=== PATIENT | female | born 1995 | race Caucasian/White ===

== ENCOUNTER → 2019-03-16 17:35 | Outpatient (CLI) | payer OTHER, SELFPAY ==
[2019-03-17 15:35] LABS: Chlamydia Trachomatis by PCR Negative (Negative); Neisserai gonorrhoeae by PCR Negative (Negative); Probe Check PASS; Sample Adequacy Control PASS; Specimen Processing Control PASS
[2019-03-22 13:43] LABS: HPV Reflexed? NOT INDICATED
== END ==
PROVIDERS: Advanced Practice Midwife; Visit Provider Obstetrics & Gynecology
DX: Z12.4 Encounter for screening for malignant neoplasm of cervix (principal); Z11.3 Encounter for screening for infections with a predominantly sexual mode of transmission
CPT/HCPCS: 87491; 87591; 88175; G0145

== ENCOUNTER → 2019-03-30 15:49 | Outpatient (CLI) | payer OTHER, SELFPAY ==
[2019-03-30 17:24] LABS: Absolute Lymphocyte Count 1.55 X10^3/uL (0.83-4.51); Absolute Neutrophil Count 6.9 X10^3/uL (2.0-7.7); Basophil# 0.02 X10^3/uL; Basophil% 0.2 % (0-1); Eosinophil# 0.04 X10^3/uL; Eosinophils% 0.4 % (0-5); Hematocrit 39.4 % (37-47); Lymphocyte # 1.55 X10^3/ul (4.0); Lymphocyte % 17.3 % (19-41); Mean Corpuscular Hgb 29.3 pg (27.0-32.0); Mean Corpuscular Volume 88.7 fL (81-99); Mean Platelet Vol. 11.8 fl (6.2-12.0); Monocyte# 0.44 X10^3/uL; Monocyte% 4.9 % (0-10); NRBC Flagged by Analyzer 0 % (0-5); Neutrophil # 6.85 X10^3/uL (2.7-7.7); Neutrophil % 76.8 % (47-70); Platelet Count 168 K/mm3 (150-450); RBC Distribution Width CV 12.7 % (11.6-14.6); RBC Distribution Width SD 41.1 fl (35.1-43.9); Red Blood Count 4.44 M/mm3 (4.2-5.4); White Blood Count 8.9 K/mm3 (4.4-11.0)
[2019-03-30 17:25] LABS: Color, Urine Yellow (Yellow); Glucose, Dipstick Normal (Normal); Ketone-Dipstick 15 mg/dl (Negative); Leukocyte Esterase-Dipstick 100 /ul (Negative); Nitrite-Dipstick Negative (Negative); Occult Blood-Urine 10 /ul (Negative); Protein-Dipstick 15 mg/dl (Negative); Urine Bilirubin Dipstick Negative (Negative); Urine Clarity Cloudy (Clear); Urine Urobilinogen 1 mg/dl (Normal); Urine pH 6.5 (5.0 - 8.0)
[2019-03-30 17:39] LABS: Amphetamine Urine VISTA NEGATIVE (<1000 ng/mL); Barbiturate Urine VISTA NEGATIVE (< 200 ng/mL); Benzodiazepine Urine VISTA NEGATIVE (< 200 ng/mL); Cocaine Urine VISTA NEGATIVE (< 300 ng/mL); Ecstacy Urine VISTA NEGATIVE (< 500 ng/mL); Methadone Urine VISTA NEGATIVE (< 300 ng/mL); PCP Urine VISTA NEGATIVE (< 25 ng/mL); THC Urine VISTA NEGATIVE (< 50 ng/mL); Vista UDS pH Range 7
[2019-03-30 17:49] LABS: Glucose Challenge Gest 1H 50g 98 mg/dL (70-140); Thyroid Stim Hormone (TSH) 2.04 uIU/mL (0.358-3.74)
[2019-03-31 10:55] LABS: HIV - WCH Non-Reactive (Nonreactive); Hepatitis B Surface Antigen Non-Reactive (Nonreactive); Hepatitis C Antibody Non-Reactive (Nonreactive); Rubella IgG 35.4 IU/mL
[2019-04-01 01:55] LABS: Prenatal RPR NONREACTIVE (NONREACTIVE)
== END ==
LOC: WOBLAB 15:53
PROVIDERS: Visit Provider Advanced Practice Midwife
DX: Z34.82 Encounter for supervision of other normal pregnancy, second trimester (principal)
CPT/HCPCS: 36415; 80307; 81002; 82950; 84443; 85025; 86703; 86762; 86803; 87340

== ENCOUNTER → 2019-06-08 10:49 | Outpatient (CLI) | payer OTHER, SELFPAY ==
[2019-06-08 11:20] LABS: Hematocrit 35.9 % (37-47); Mean Corp Hgb Conc 33.4 g/dL (32-36); Mean Corpuscular Hgb 29.8 pg (27.0-32.0); Mean Corpuscular Volume 89.1 fL (81-99); Mean Platelet Vol. 11.1 fl (6.2-12.0); Platelet Count 161 K/mm3 (150-450); RBC Distribution Width CV 12.5 % (11.6-14.6); RBC Distribution Width SD 40.9 fl (35.1-43.9); Red Blood Count 4.03 M/mm3 (4.2-5.4); White Blood Count 8.3 K/mm3 (4.4-11.0)
[2019-06-08 11:27] LABS: Glucose Challenge Gest 1H 50g 137 mg/dL (70-140)
== END ==
PROVIDERS: Visit Provider Obstetrics & Gynecology
DX: Z34.83 Encounter for supervision of other normal pregnancy, third trimester (principal)
CPT/HCPCS: 36415; 82950; 85027

== ENCOUNTER → 2019-07-28 15:41 | Outpatient (CLI) | payer OTHER, SELFPAY | PROVIDERS: Referring Provider Advanced Practice Midwife; Visit Provider Advanced Practice Midwife | DX: Z36.85 Encounter for antenatal screening for Streptococcus B (principal) | CPT/HCPCS: 87081 ==

== ENCOUNTER 2019-08-17 19:05 | Inpatient (IN) | payer OTHER, SELFPAY ==
[2019-08-17 16:24] LABS: Hematocrit 36.6 % (37-47); Mean Corp Hgb Conc 32.8 g/dL (32-36); Mean Corpuscular Hgb 28.5 pg (27.0-32.0); Mean Corpuscular Volume 86.9 fL (81-99); Mean Platelet Vol. 11.6 fl (6.2-12.0); Platelet Count 185 K/mm3 (150-450); RBC Distribution Width CV 12.9 % (11.6-14.6); RBC Distribution Width SD 40.6 fl (35.1-43.9); Red Blood Count 4.21 M/mm3 (4.2-5.4); White Blood Count 8.2 K/mm3 (4.4-11.0)
[2019-08-17 16:37] LABS: AST(SGOT) 14 U/L (15-37); Alanine Aminotransfer ALT/SGPT 18 U/L (13-56); Creatinine, Serum 0.77 mg/dL (0.55-1.02); EST Glomerular Filtration Rate 97 mL/min (>60); Est Glom Filt Rate - Afr Amer 117 mL/min (>60); Uric Acid 4.8 mg/dL (2.6-6.0)
[2019-08-17 17:13] LABS: International Normalized Ratio 1.1; Prothrombin Time (Protime)PT. 13.6 SECONDS (11.7-14.9)
[2019-08-17 17:14] LABS: Partial Thromboplast Time 26.5 Seconds (24.1-36.2)
[2019-08-17 19:27] VITALS: BMI 49.4
[2019-08-17 20:02] VITALS: BP 157/98; PULSE 88; TEMP 97.8; O2SAT 98
[2019-08-17] MEDS: Lactated Ringers 1,000 ML 50 ML IV (20:05)
[2019-08-17 20:23] LABS: Absolute Lymphocyte Count 1.77 X10^3/uL (0.83-4.51); Absolute Neutrophil Count 7.8 X10^3/uL (2.0-7.7); Basophil# 0.03 X10^3/uL; Basophil% 0.3 % (0-1); Eosinophil# 0.04 X10^3/uL; Eosinophils% 0.4 % (0-5); Hematocrit 34.4 % (37-47); Hemoglobin 11.6 g/dL (12.0-15.0); Lymphocyte # 1.77 X10^3/ul (4.0); Lymphocyte % 17.3 % (19-41); Mean Corp Hgb Conc 33.7 g/dL (32-36); Mean Platelet Vol. 11.7 fl (6.2-12.0); Monocyte# 0.52 X10^3/uL; Monocyte% 5.1 % (0-10); NRBC Flagged by Analyzer 0 % (0-5); Neutrophil # 7.79 X10^3/uL (2.7-7.7); Neutrophil % 76.3 % (47-70); Platelet Count 172 K/mm3 (150-450); RBC Distribution Width CV 12.9 % (11.6-14.6); White Blood Count 10.2 K/mm3 (4.4-11.0)
[2019-08-17] MEDS: miSOPROStol 25 MCG TABLET VAGINAL (20:23)
[2019-08-17 20:28] VITALS: BP 145/88; PULSE 76; O2SAT 97
[2019-08-17 21:00] VITALS: BP 143/83; PULSE 81; TEMP 98.4; O2SAT 97
--- NOTE | 2019-08-17 21:12 | PCM.HP.OB ---
- Problem List (1) 38 weeks gestation of Status: Acute (2) Preeclampsia Status: Acute History Date of Admission: 08/17/19 Final SOHAN: 08/25/19 Final SOHAN Source: [place] <20 weeks Gestational age: 38 Weeks and 6 Days History of this : This is a 24 year-old, G [2], P [1], at 38 weeks gestational age. Presented to the office today for a routine PNV. BP 164/100. Hx of pre-eclampsia with first . Here for medical IOL. Allergies No Known Allergies Allergy (Verified 08/17/19 19:28) Home Medications: Home Medications Loratadine [Claritin] 10 mg PO DAILY 08/17/19 Gummies 1 tab PO DAILY 08/17/19 Smoking Status: Never smoker Alcohol: None Number of Fetus(es): 1 NST - FHR Rate Baby A Baseline: 160 Variability:: Moderate Accelerations:: 15 x 15 Decelerations:: None NST Reactive:: Yes FHR Category:: Category I Uterine Activity:: quiet History Past Pregnancies: Past Pregnancies Delivery Date Name GA/ Weeks Outcome Route Wt Sex Labor Length Anesthesia Delivery Location Provider FOB 01-30-16 41 viable vag 8.14 M 8 Epidural Olive Labs: Mom's Current Diagnoses Encounter for supervision of other normal , third trimester 08/17/19 Mom's Problem List Problem Status Onset Code 38 weeks gestation of Acute Z3A.38 Preeclampsia Acute O14.90 Mom's Labs & Results 08/17/19 08/17/19 08/17/19 16:10 16:10 16:10 WBC 8.2 RBC 4.21 Hgb 12.0 Hct 36.6 L MCV 86.9 MCH 28.5 MCHC 32.8 RDW Std Deviation 40.6 RDW Coeff of Adeline 12.9 Plt Count 185 MPV 11.6 Immature Gran % (Auto) Neut % (Auto) Lymph % (Auto) [place] % (Auto) Eos % (Auto) Baso % (Auto) Absolute Neuts (auto) Absolute Lymphs (auto) Nucleated RBC % PT 13.6 INR 1.1 APTT 26.5 Creatinine 0.77 Est GFR (MDRD) Af Amer 117 Est GFR (MDRD) Non-Af 97 Uric Acid 4.8 AST 14 L ALT 18 Blood Type Antibody Screen 08/17/19 08/17/19 20:05 20:05 WBC 10.2 RBC 4.00 L Hgb 11.6 L Hct 34.4 L MCV 86.0 MCH 29.0 MCHC 33.7 RDW Std Deviation 40.0 RDW Coeff of Adeline 12.9 Plt Count 172 MPV 11.7 Immature Gran % (Auto) 0.600 Neut % (Auto) 76.3 H Lymph % (Auto) 17.3 L [place] % (Auto) 5.1 Eos % (Auto) 0.4 Baso % (Auto) 0.3 Absolute Neuts (auto) 7.8 H Absolute Lymphs (auto) 1.77 Nucleated RBC % 0 PT INR APTT Creatinine Est GFR (MDRD) Af Amer Est GFR (MDRD) Non-Af Uric Acid AST ALT Blood Type O POSITIVE Antibody Screen NEGATIVE Course Did the patient receive Yes care? Labs Blood Type: O RH: POSITIVE RPR/VDRL/Syphilis Nonreactive Rubella status Immune HbSAg Negative Date Done: 03/30/19 Chlamydia Negative Gonorrhea Negative HIV/AIDS Non-Reactive Group B Strep: Negative Current Obstetrical History Gestational Diabetes No Incompetent Cervix No Infertility No IUGR No Macrosomia No Hypertension/Pre-eclampsia Yes Placenta Previa/Abruption No PTL/PROM No Uterine anomaly No Oligohydramnios No Polyhydramnios No Multiple gestation No Past Medical History Asthma No Diabetes No Hypertension No: during preg only Heart disease No Mitral valve prolapse No Neurologic/Seizure disorder/ No Migraines Kidney disease No Liver disease No Varicosities No Clotting disorders/Hx of DVT No Thyroid Dysfunction No Other medical diseases No Psychiatric disorders No Major trauma No Abnormal PAP smear No Sleep apnea No Mammogram in the last 2 years No Social History Marital Status: Alleged father Stephon Hx Smoking No Smoking Status Never smoker How long have you used n/a substances (years)? Expected Delivery Method: Spontaneous Vaginal Describe any other labor & delivery plans:: Medical induction of labor via Cytotec Number of Visits: 10 Review of Systems Constitutional: Denies: Chills, Fever, Weight Change HEENT: Denies: Head Aches, Sinus Congestion, Sinus Drainage Cardiovascular: Denies: Chest Pain, Palpitations Respiratory: Denies: Cough, Shortness of breath at rest, Sputum production Gastrointestinal: Denies: Abdominal Pain, Nausea, Vomiting Genitourinary: Denies: Dysuria Musculoskeletal: Denies: Joint Pain, Joint Tenderness Skin: Denies: Rash, Wounds Neurological: Denies: Numbness, Tingling, Focal weakness Psychiatric: Denies: Anxiety, Depression, Homicidal Ideations, Suicidal Ideations Hematologic/ Lymphatic: Denies: Easy Bruising, Easy Bleeding Physical Exam Vitals: BP 143/83, all other VSS General: Alert, Oriented x3, No apparent distress HEENT: Atraumatic, Normocephalic. Negative for: Thyromegaly, Lymphadenopathy Cardiovascular: Regular rate, Regular Rhythm Lungs: Clear to auscultation Abdomen: Bowel Sounds Present, Gravid Extremities:: No edema - +2 Neurological: Deep Tendon Reflexes 2+/4 and Symmetrical, Neuro grossly intact ALTERNATIVE DISPUTE RESOLUTION MEDIATOR: Normal external genitalia. Negative for: Vulvar lesions Estimated gestational size: Appropriate for gestational size Presentation: Cephalic Cervix Dilation (cm): 0 - ft Station: -3 Effacement (%): 20 Assessment/Plan All Active Problems 38 weeks gestation of (Acute) Preeclampsia (Acute) A: This is a 24 year-old, G [2], P [1], at 38 weeks gestational age with a hx of pre-eclampsia in first . Medical induction of labor via Cytotec for pre-eclampsia. BP stable at 143/83. In office today 164/100. SVE ft/20/high soft posterior NST reactive, Category I with FHR baseline 160, +accels, - decels P: Induction via Cytotec Continuous monitoring Watch BP for rise or for maternal headache, blurred vision, or RUQ pain Expect
[2019-08-17] MEDS: Mag Hydrox/Al Hydrox/Simeth 30 ML UDC PO (21:41)
[2019-08-17 22:56] VITALS: BP 166/83; PULSE 72; TEMP 97.8
[2019-08-17 23:12] VITALS: BP 132/64; PULSE 73
[2019-08-18] VITALS (73 sets, daily range): BP systolic 134–204; BP diastolic 65–117; PULSE 63–104; RESP 16–18; TEMP 36.7–36.8; O2SAT 89–100
[2019-08-18] MEDS: miSOPROStol 25 MCG TABLET VAGINAL ×2 (00:35→04:25)
--- NOTE | 2019-08-18 08:24 | PCM.PN.BLA ---
Progress Note S: Back is hurting from the bed being too small for her Otherwise denies headache, blurred vision and RUQ pain O: SVE ft/75/-3 soft posterior UC 2-5 minutes VSS with BP 142/67 A: (m,m*) Here at 39w0d for IOL for pre-e NST reactive Category I Three doses of Cytotec given overnight P: To start Pitocin per shared decision making Plans epidural when uncomfortable Will AROM when 3-4cm To re-evaluate SVE in 4 hours Continuous monitoring Expect
[2019-08-18] MEDS: Oxytocin 30 units/NS 500 ml 30 UNITS/500 ML IV.SOLN IV (08:38)
[2019-08-18] MEDS: Lactated Ringers 500 ML 999 ML IV (10:58)
[2019-08-18] MEDS: fentaNYL-bupivacaine (epidural) 100 ML BAG EPIDURAL (11:51)
[2019-08-18] MEDS: Labetalol 100 MG/20 ML Vial 40 MG IV (12:33)
[2019-08-18] MEDS: Lactated Ringers 1,000 ML 200 ML IV (13:07)
--- NOTE | 2019-08-18 14:05 | PCM.OPRPT ---
Problem List (1) 38 weeks gestation of Status: Acute (2) Preeclampsia Status: Acute Vaginal Delivery Maternal Presentation: Medically Indicated Induction with medical induction of labor for hypertension Method of Induction: Cytotec Medical Reason for Induction: Preeclampsia, eclampsia Amniotic Membrane Rupture Type: Spontaneous Rupture of Membrane time: 1036 Amniotic Fluid Description: Clear Final SOHAN: 08/25/19 Gestational age: 39 Weeks and 0 Days Date of Procedure: 08/18/19 Pre-Operative Diagnosis: IOL Post-Operative Diagnosis: S/P Surgery/ Procedure Performed: Spontaneous Vaginal Delivery Type of Anesthesia: Epidural Description of Procedure: Patient was FD/+3 station and pushed to deliver a viable male at 1405 in OA to SWETA followed immediately by body. The was placed on the maternal abdomen and further attended by nursery personnel. Bulb suction and gentle stimulation given, with spontaneous cries. The cord was doubly clamped by CNM and cut at approximately 2 minute by paternal grandmother. With gentle traction the placenta delivered via Dudley mechanism at 5 minutes. It appeared intact on inspection with a 3 vessel cord. IV Pitocin started per protocol. The fundus firmed well and good hemostasis. First degree perineal/vaginal floor extension laceration repaired with a 3.0 double rapide. EBL 200. apgars 8/9. Presentation: Vertex, SWETA Placental Delivery Description: Spontaneous Placenta Disposition: [facility] Cord Vessel Description: 3 Vessels Cord Entanglement: None Estimated Blood Loss: 200 Infant A gender: Male (1 minute): 8 (5 minute): 9 Episiotomy Description: None Laceration: Perineal Extension/lac, 1st degree Medications given after delivery: IV Pitocin
[2019-08-18] MEDS: Oxytocin 30 units/NS 500 ml 30 UNITS/500 ML IV.SOLN 334 UNITS IV (14:10)
[2019-08-18] MEDS: 0.9% Saline Lock 10 ML Syringe IV (17:10)
--- NOTE | 2019-08-18 20:02 | DCINST_ITS ---
Discharge Diet: No Restrictions Discharge Activity: Return to Normal Activity, May not drive while taking narcotic pain medications., May Shower May resume sexual activity in: 4-6 weeks Additional Activity Instructions:: Nothing in the vagina for 4-6 weeks. You may return to work/school in 6 weeks. Call your doctor if your incision/area has: Continuous Slow Oozing, Sudden Increased Bleeding, Increased Pain/ Swelling, Increased Redness, Foul Smelling Discharge Instructions: After a Vaginal , Understanding Depression Additional Instructions: If you experience any of the following, contact your healthcare provider. * Bleeding that soaks a pad every hour for 2 hours * Fever 100.4 or higher * Unrelieved incision or abdominal pain * Swelling, redness, discharge or bleeding from your incision or episiotomy site * Your incision begins to separate * Problems urinating (including inability to urinate or burning while urinating). * Visual changes * Severe headache * Flu-like symptoms * Pain or redness in one of both of your breasts * Pain, warmth, tenderness or swelling in your legs, especially the calf area * Frequent nausea and vomiting * Symptoms of depression or anxiety If you experience any of the following, call 911 or go to the nearest Emergency Room. * Chest pain * Problems breathing * Seizure activity * Partial or complete paralysis of a body part, slurred speech, weakness or drooping of the face, or a sudden inability to walk or hold your balance Allergies/Adverse Reactions: Allergies No Known Allergies Allergy (Verified 08/17/19 19:28) Medications to take at Discharge Loratadine [Claritin] 10 mg PO DAILY 08/17/19 Gummies 1 tab PO DAILY 08/17/19 Please Follow Up With: Ritu Dugan CNM When: Call to make an appointment for BP check in 2 weeks. Test Results: Test results from this visit will be discussed in further detail at your follow- up appointment, if applicable.
--- NOTE | 2019-08-18 20:54 | NURSING ---
slipped on ice going in to work.
[2019-08-19 01:10] VITALS: BP 135/77; PULSE 74; RESP 16; TEMP 36.8
[2019-08-19 03:39] VITALS: BP 140/76; PULSE 76; RESP 16; TEMP 37.1
[2019-08-19] MEDS: 0.9% Saline Lock 10 ML Syringe IV (03:47)
[2019-08-19] MEDS: Ibuprofen 600 MG Tablet PO (06:21)
[2019-08-19 07:56] VITALS: BP 138/77; PULSE 72; RESP 18; TEMP 36.7
--- NOTE | 2019-08-19 08:09 | NURSING ---
red, abrasion areas noted around umbilicus. Pt states That is from the wireless monitor where the skin was scrubbed. Ritu, nurse chief librarian branch or department in room. she states They look better today, states blisters were present yesterday. Brendon MELENDREZ informed. In room to see pt.
--- NOTE | 2019-08-19 08:46 | PCM.PN.BLA ---
Progress Note S: Feeling well with no pain or complaints at all. O: VSS. BP 138/77 Fundus u/1, firm, midline Lochia rubra moderate Normal involution Abdomen is excoriated in 5 separate areas with erythema and scratches d/t Novii system used in labor A: Post vaginal delivery day 1 Bottle feeding male Normal course P: Discharge home today after 24 hours To follow up in 2 weeks for BP check Education on care of self, baby, understanding PPD and increasing iron rich foods STROKE Vital Signs/Narrative: Vital Signs Temp Pulse Resp BP 08/19/19 07:56 98.1 F 72 18 138/77 H
[2019-08-19 12:00] VITALS: BP 139/84; PULSE 79; RESP 18; TEMP 36.6
[2019-08-19 16:04] VITALS: BP 133/74; PULSE 77; RESP 18; TEMP 36.9
== END 2019-08-19 16:30 | disposition home or self-care (01) | DRG 807 ==
LOC: WP 19:15
PROVIDERS: Admitting Provider Obstetrics & Gynecology; Referring Provider Obstetrics & Gynecology; Visit Provider Obstetrics & Gynecology
DX: O14.94 Unspecified pre-eclampsia, complicating childbirth (principal); Z37.0 Single live birth; Z3A.39 39 weeks gestation of pregnancy; O70.0 First degree perineal laceration during delivery
CPT/HCPCS: 36415; 59025; 59050; 82565; 84450; 84460; 84550; 85025; 85027; 85610; 85730; 86850; 86900; 86901; 99218; J7120; A4216; G0378

== ENCOUNTER → 2020-02-02 16:15 | Outpatient (CLI) | payer MEDICAID, SELFPAY ==
[2020-02-02 17:12] LABS: Absolute Lymphocyte Count 1.51 X10^3/uL (0.83-4.51); Absolute Neutrophil Count 5.9 X10^3/uL (2.0-7.7); Basophil# 0.03 X10^3/uL; Basophil% 0.4 % (0-1); Eosinophil# 0.04 X10^3/uL; Eosinophils% 0.5 % (0-5); Hematocrit 38.4 % (37-47); Hemoglobin 12.5 g/dL (12.0-15.0); Lymphocyte # 1.51 X10^3/ul (4.0); Lymphocyte % 19.1 % (19-41); Mean Corp Hgb Conc 32.6 g/dL (32-36); Mean Corpuscular Volume 86.1 fL (81-99); Mean Platelet Vol. 11.4 fl (6.2-12.0); Monocyte# 0.44 X10^3/uL; Monocyte% 5.6 % (0-10); NRBC Flagged by Analyzer 0 % (0-5); Neutrophil # 5.85 X10^3/uL (2.7-7.7); Neutrophil % 73.9 % (47-70); Platelet Count 179 K/mm3 (150-450); RBC Distribution Width SD 39.8 fl (35.1-43.9); Red Blood Count 4.46 M/mm3 (4.2-5.4); White Blood Count 7.9 K/mm3 (4.4-11.0)
[2020-02-02 17:15] LABS: Color, Urine Yellow (Yellow); Glucose, Dipstick Normal (Normal); Ketone-Dipstick Negative (Negative); Leukocyte Esterase-Dipstick 25 /ul (Negative); Nitrite-Dipstick Negative (Negative); Occult Blood-Urine Negative /ul (Negative); Protein-Dipstick Negative (Negative); Specific Gravity, Urine 1.015 (1.002-1.030); Urine Bilirubin Dipstick Negative (Negative); Urine Clarity Cloudy (Clear); Urine Urobilinogen Normal (Normal)
[2020-02-02 17:27] LABS: International Normalized Ratio 1.1; Prothrombin Time (Protime)PT. 13.2 SECONDS (11.7-14.9)
[2020-02-02 17:28] LABS: Partial Thromboplast Time 24.1 Seconds (24.1-36.2)
[2020-02-02 17:36] LABS: AST(SGOT) 10 U/L (15-37); Alanine Aminotransfer ALT/SGPT 12 U/L (13-56); Creatinine, Serum 0.85 mg/dL (0.55-1.02); EST Glomerular Filtration Rate 86 mL/min (>60); Est Glom Filt Rate - Afr Amer 105 mL/min (>60); Uric Acid 4.2 mg/dL (2.6-6.0)
[2020-02-02 17:45] LABS: Amphetamine Urine VISTA NEGATIVE (<1000 ng/mL); Barbiturate Urine VISTA NEGATIVE (< 200 ng/mL); Benzodiazepine Urine VISTA NEGATIVE (< 200 ng/mL); Cocaine Urine VISTA NEGATIVE (< 300 ng/mL); Ecstacy Urine VISTA NEGATIVE (< 500 ng/mL); Methadone Urine VISTA NEGATIVE (< 300 ng/mL); PCP Urine VISTA NEGATIVE (< 25 ng/mL); THC Urine VISTA NEGATIVE (< 50 ng/mL); Vista UDS pH Range 7
[2020-02-03 11:32] LABS: HIV - WCH Non-Reactive (Nonreactive); Hepatitis B Surface Antigen Non-Reactive (Nonreactive); Hepatitis C Antibody Non-Reactive (Nonreactive); Rubella IgG 31.7 IU/mL
[2020-02-03 17:31] LABS: Free T3 2.8 pg/mL (2.18-3.98); T4 Free Direct 0.84 ng/dL (0.76-1.46)
[2020-02-07 03:06] LABS: Chlamydia By Nucleic Acid AMP Negative (Negative)
[2020-02-07 09:45] LABS: Gonococcus By Nucleic Acid AMP Negative (Negative)
[2020-02-09 02:15] LABS: Prenatal RPR NONREACTIVE (NONREACTIVE)
== END ==
PROVIDERS: Visit Provider Obstetrics & Gynecology
DX: O13.2 Gestational [pregnancy-induced] hypertension without significant proteinuria, second trimester (principal); Z3A.00 Weeks of gestation of pregnancy not specified
CPT/HCPCS: 80307; 81002; 82565; 84439; 84443; 84450; 84460; 84481; 84550; 85025; 85610; 85730; 86703; 86762; 86803; 87340; 87491; 87591

== ENCOUNTER → 2020-02-03 16:47 | Outpatient (CLI) | payer MEDICAID, SELFPAY ==
[2020-02-07 14:08] LABS: Albumin, Ur 49.6 % (.); Alpha-1-Globulin, Ur 4.5 % (.); Beta Globulin, Ur 18.8 % (.); Gamma Globulin, Ur 12.9 % (.); Protein, 24Ur 123 mg/24 hr (30-150); Total Protein, Ur 12.9 mg/dL (Not Estab.)
[2020-02-07 15:31] LABS: M-Spike, Ur % Comment: % (Not Observed); PE Ur Interpretation Comment: (.)
== END ==
PROVIDERS: Referring Provider Obstetrics & Gynecology; Visit Provider Obstetrics & Gynecology
DX: O13.2 Gestational [pregnancy-induced] hypertension without significant proteinuria, second trimester (principal); Z3A.00 Weeks of gestation of pregnancy not specified
CPT/HCPCS: 81050; 84166

== ENCOUNTER → 2020-02-22 14:44 | Outpatient (CLI) | payer MEDICAID, SELFPAY ==
[2020-02-22 17:41] LABS: Glucose Challenge Gest 1H 50g 106 mg/dL (70-140)
== END ==
PROVIDERS: Visit Provider Obstetrics & Gynecology
DX: Z34.82 Encounter for supervision of other normal pregnancy, second trimester (principal); E66.3 Overweight
CPT/HCPCS: 36415; 82950

== ENCOUNTER → 2020-03-01 14:06 | Outpatient (CLI) | payer MEDICAID, SELFPAY ==
[2020-03-01 17:06] LABS: T4 Free Direct 0.97 ng/dL (0.76-1.46); T4 Total, Thyroxin 12.3 ug/dL (4.8-13.9); Thyroid Stim Hormone (TSH) 6.28 uIU/mL (0.358-3.74)
== END ==
PROVIDERS: Visit Provider Obstetrics & Gynecology
DX: O99.280 Endocrine, nutritional and metabolic diseases complicating pregnancy, unspecified trimester (principal); E03.9 Hypothyroidism, unspecified; Z3A.00 Weeks of gestation of pregnancy not specified
CPT/HCPCS: 36415; 84436; 84439; 84443; 84481

== ENCOUNTER 2020-08-02 07:40 | Inpatient (IN) | payer MEDICAID, SELFPAY ==
[2020-08-02] VITALS (46 sets, daily range): BP systolic 107–167; BP diastolic 55–95; PULSE 71–141; RESP 18; TEMP 36.2–37.1; O2SAT 82–100; BMI 49.1
--- NOTE | 2020-08-02 08:56 | PCM.HP.OB ---
- Problem List (1) 37 weeks gestation of Status: Acute (2) Chronic hypertension affecting Status: Chronic (3) Polyhydramnios affecting Status: Acute (4) Hypothyroid Status: Acute History Date of Admission: 08/17/19 Final SOHAN: 08/22/20 Final SOHAN Source: [place] <20 weeks Gestational age: 37 Weeks and 1 Days History of this : This is a 25 year-old, G [3], P [2], at 37.1 weeks gestational age for induction of labor. care affected by chronic hypertension, polyhydramnios, obesity and hypothyroidism. Patient denies any loss of fluid, vaginal bleeding or contractions. Positive movement. Had 2 previous inductions of labor. Allergies No Known Allergies Allergy (Verified 08/17/19 19:28) Home Medications: Home Medications Gummies 1 tab PO DAILY 08/17/19 Aspirin [Aspirin EC] 81 mg PO DAILY 08/02/20 Carvedilol [Coreg] 12.5 mg PO BID 08/02/20 Levothyroxine [Synthroid] 75 mcg PO DAILY 08/02/20 Smoking Status: Never smoker Number of Fetus(es): 1 NST - FHR Rate Baby A Baseline: 140 Variability:: Moderate Accelerations:: 15 x 15 Decelerations:: None NST Reactive:: Yes FHR Category:: Category I Uterine Activity:: Irritability History Past Pregnancies: Past Pregnancies Delivery Date Name GA/ Weeks Outcome Route Wt Sex Labor Length Anesthesia Delivery Location Provider FOB Labs: O+ Rubella - immune HB neg HC neg RPR- NR HIV- NR GBS negative COVID 19- negative on 07/28/20 Expected Delivery Method: Spontaneous Vaginal Review of Systems Constitutional: Denies: Chills, Fever, Weight Change HEENT: Denies: Head Aches, Sinus Congestion, Sinus Drainage Cardiovascular: Denies: Chest Pain, Palpitations Respiratory: Denies: Cough, Shortness of breath at rest Genitourinary: Denies: Dysuria Neurological: Denies: Numbness, Tingling, Focal weakness Physical Exam Vitals: Vital Signs Temp Pulse BP Pulse Ox 98.3 F 81 135/79 H 99 08/02/20 08:02 08/02/20 08:28 08/02/20 08:26 08/02/20 08:28 General: Alert, Oriented x3 Cardiovascular: Regular rate Lungs: Normal air movement Abdomen: Soft, Non Tender Neurological: Cranial nerves II-XII grossly intact Cervix Dilation (cm): 1.5 Station: -3 Effacement (%): 60 Assessment/Plan All Active Problems 38 weeks gestation of (Acute) Preeclampsia (Acute) 37 weeks gestation of (Acute) Polyhydramnios affecting (Acute) Hypothyroid (Acute) This is a 25 year-old, G [3], P [2], at 37.1 weeks gestational age for induction of labor for chronic hypertension, polyhydramnios, obesity and hypothyroidism. A/P Admit to labor and delivery Routine labs BP monitoring IV fluids per policy NST reactive Cat. 1 tracing Start pitocin IV and titrate per policy Anticipate Dr. Jolley collaborating physician and involved with plan of care
--- NOTE | 2020-08-02 08:58 | PCM.PN.BLA ---
Progress Note Patient seen at bedside. Patient here for induction of labor for Polyhydramnios, chronic hypertension and hypothyroidism. Position yesterday was cephalic via TAUS. Bedside US completed today confirms position is cephalic CE- 1.5/60/-3 A/P at 37.1 weeks gestation for medical induction of labor NST reactive Category [address] Jolley involved with plan of care and is collaborating physician STROKE Vital Signs/Narrative: Vital Signs Temp Pulse BP Pulse Ox 08/02/20 08:28 81 99 08/02/20 08:26 93 135/79 H 08/02/20 08:02 98.3 F 135/79 H
[2020-08-02] MEDS: Lactated Ringers 1,000 ML 50 ML IV (10:21)
[2020-08-02 10:28] LABS: Absolute Neutrophil Count 5.9 X10^3/uL (2.0-7.7); Basophil# 0.03 X10^3/uL; Basophil% 0.4 % (0-1); Eosinophil# 0.04 X10^3/uL; Eosinophils% 0.5 % (0-5); Hematocrit 30.4 % (37-47); Hemoglobin 9.7 g/dL (12.0-15.0); Lymphocyte % 16.7 % (19-41); Mean Corp Hgb Conc 31.9 g/dL (32-36); Mean Corpuscular Hgb 26.2 pg (27.0-32.0); Mean Corpuscular Volume 82.2 fL (81-99); Mean Platelet Vol. 11.8 fl (6.2-12.0); Monocyte# 0.49 X10^3/uL; Monocyte% 6.3 % (0-10); NRBC Flagged by Analyzer 0 % (0-5); Neutrophil # 5.89 X10^3/uL (2.7-7.7); Neutrophil % 75.7 % (47-70); Platelet Count 179 K/mm3 (150-450); RBC Distribution Width CV 14.5 % (11.6-14.6); RBC Distribution Width SD 42.9 fl (35.1-43.9); White Blood Count 7.8 K/mm3 (4.4-11.0)
[2020-08-02] MEDS: Oxytocin 30 units/NS 500 ml 30 UNITS/500 ML IV.SOLN IV (10:38)
[2020-08-02] MEDS: Mag Hydrox/Al Hydrox/Simeth 30 ML UDC PO (11:12)
--- NOTE | 2020-08-02 13:02 | PCM.PN.OB ---
Patient Problems: Active and Suspected Problems 37 weeks gestation of (Acute) Polyhydramnios affecting (Acute) Hypothyroid (Acute) Subjective: Patient seen at bedside. Starting to feel contractions. Interested in epidural anesthesia. Objective: NST reactive Category 1 tracing TOCO reading contractions every 2-3 minutes - Physical Exam Vitals/I&O's: Vital Signs Temp Pulse BP Pulse Ox 98.3 F 90 141/60 H 98 08/02/20 08:02 08/02/20 11:51 08/02/20 11:50 08/02/20 11:51 Weight: 332 lb 10.841 oz Body Mass Index (BMI) 49.1 Intake and Output for Last 24 Hours 07/31/20 08/01/20 08/02/20 23:59 23:59 23:59 Intake Total 135.90 / 135.90 Output Total 200 / 200 Balance -64.10 / -64.10 General: Alert, Oriented x3 Neck: Supple Cardiovascular: Regular rate Abdomen: Soft, Non Tender, Gravid Skin: No rashes Neurological: Cranial nerves II-XII grossly intact Laboratory Results 08/02/20 10:15: WBC 7.8, RBC 3.70 L, Hgb 9.7 L, Hct 30.4 L, MCV 82.2, MCH 26.2 L, MCHC 31.9 L, RDW Std Deviation 42.9, RDW Coeff of Adeline 14.5, Plt Count 179, MPV 11.8, Immature Gran % (Auto) 0.400, Neut % (Auto) 75.7 H, Lymph % (Auto) 16.7 L, [place] % (Auto) 6.3, Eos % (Auto) 0.5, Baso % (Auto) 0.4, Absolute Neuts (auto) 5.9, Absolute Lymphs (auto) 1.30, Nucleated RBC % 0 08/02/20 10:15: Blood Type O POSITIVE, Antibody Screen NEGATIVE Current Medications Acetaminophen (Acetaminophen 500 Mg Tablet) 500 - 1,000 mg PO Q6H PRN PRN PRN Reason: Pain Score 1-3 Al Hydroxide/Mg Hydroxide (Mag Hydrox/Al Hydrox/Simeth 30 Ml Udc) 15 - 30 ml PO Q4H PRN PRN PRN Reason: INDIGESTION Last Admin: 08/02/20 11:12 Dose: 30 ml Documented by: Citric Acid/Sodium Citrate (Sodium Citrate/Citric Acid 30 Ml Udc) 30 ml PO X1 PRN PRN Reason: Section Fentanyl Citrate (Fentanyl 100 Mcg/2 Ml Ampul) 25 - 50 mcg IV Q2H PRN PRN PRN Reason: Pain Score 4-10 Oxytocin/Sodium Chloride () 30 units in 500 mls @ 2 mls/hr IV .Q250H [facility] Last Infusion: 08/02/20 11:45 Dose: 6 mls/hr Documented by: Lactated Ringer's () 500 mls @ 999 mls/hr IV .Q31M PRN PRN Reason: Epidural Lactated Ringer's () 500 mls @ 999 mls/hr IV .Q31M PRN PRN Reason: Corrective Measures Lactated Ringer's () 1,000 mls @ 50 mls/hr IV .Q20H [facility] Last Infusion: 08/02/20 13:00 Dose: 200 mls/hr Documented by: Ondansetron HCl (Ondansetron 4 Mg/2 Ml Vial) 4 mg IV Q4H PRN PRN PRN Reason: NAUSEA Prochlorperazine Edisylate (Prochlorperazine 10 Mg/2 Ml Vial) 10 mg IV Q6H PRN PRN PRN Reason: NAUSEA Sodium Chloride (0.9% Saline Lock 10 Ml Syringe) 10 - 40 ml IV X1 PRN PRN Reason: SALINE FLUSH Medical Necessity - Tobacco Use Smoking Status: Never smoker Assessment/Plan All Active Problems 38 weeks gestation of (Acute) Preeclampsia (Acute) 37 weeks gestation of (Acute) Polyhydramnios affecting (Acute) Hypothyroid (Acute) at 37.1 weeks gestation induction of labor Continue present plan of care NST reactive Category 1 tracing Pitocin 8mu/min IV- titrate per policy Dr. Jolley at bedside- A.R.O.M for copious amount of clear fluid IUPC placed without difficulty CE- /70/-3 midposition Anticipate
[2020-08-02] MEDS: Lactated Ringers 500 ML 999 ML IV ×2 (13:08→17:17)
[2020-08-02] MEDS: fentaNYL-bupivacaine (epidural) 100 ML BAG EPIDURAL ×2 (13:55→17:41)
--- NOTE | 2020-08-02 17:10 | PCM.PN.OB ---
Patient Problems: Active and Suspected Problems 37 weeks gestation of (Acute) Polyhydramnios affecting (Acute) Hypothyroid (Acute) Subjective: Patient seen at bedside. Starting to feel contractions again after epidural placement. Rates pain 08/29. Objective: Category 2 tracing with variables IU reading every 2-4 minutes - Physical Exam Vitals/I&O's: Vital Signs Temp Pulse BP Pulse Ox 98.1 F 75 119/55 L 99 08/02/20 15:09 08/02/20 15:09 08/02/20 15:09 08/02/20 15:09 Weight: 332 lb 10.841 oz Body Mass Index (BMI) 49.1 Intake and Output for Last 24 Hours 07/31/20 08/01/20 08/02/20 23:59 23:59 23:59 Intake Total 686.64 / 686.64 Output Total 200 / 200 Balance 486.64 / 486.64 General: Alert, Oriented x3 HEENT: Atraumatic Oral: Moist Mucosa Lungs: Normal air movement Cardiovascular: Regular rate Abdomen: Soft, Gravid Skin: No rashes Musculoskeletal: No Tenderness to Palpation of Joints or Extremities Neurological: Cranial nerves II-XII grossly intact Laboratory Results 08/02/20 10:15: WBC 7.8, RBC 3.70 L, Hgb 9.7 L, Hct 30.4 L, MCV 82.2, MCH 26.2 L, MCHC 31.9 L, RDW Std Deviation 42.9, RDW Coeff of Adeline 14.5, Plt Count 179, MPV 11.8, Immature Gran % (Auto) 0.400, Neut % (Auto) 75.7 H, Lymph % (Auto) 16.7 L, [place] % (Auto) 6.3, Eos % (Auto) 0.5, Baso % (Auto) 0.4, Absolute Neuts (auto) 5.9, Absolute Lymphs (auto) 1.30, Nucleated RBC % 0 08/02/20 10:15: Blood Type O POSITIVE, Antibody Screen NEGATIVE Current Medications Acetaminophen (Acetaminophen 500 Mg Tablet) 500 - 1,000 mg PO Q6H PRN PRN PRN Reason: Pain Score 1-3 Al Hydroxide/Mg Hydroxide (Mag Hydrox/Al Hydrox/Simeth 30 Ml Udc) 15 - 30 ml PO Q4H PRN PRN PRN Reason: INDIGESTION Last Admin: 08/02/20 11:12 Dose: 30 ml Documented by: Citric Acid/Sodium Citrate (Sodium Citrate/Citric Acid 30 Ml Udc) 30 ml PO X1 PRN PRN Reason: Section Ephedrine Sulfate (Ephedrine Sulfate 50 Mg/Ml Ampul) 10 mg IV Q10M PRN PRN Reason: hypotension Ephedrine Sulfate (Ephedrine Sulfate 50 Mg/Ml Ampul) 10 mg IM Q30M PRN PRN Reason: hypotension Fentanyl Citrate (Fentanyl 100 Mcg/2 Ml Ampul) 25 - 50 mcg IV Q2H PRN PRN PRN Reason: Pain Score 4-10 Fentanyl/Bupivacaine/Sodium Chlor (Fentanyl-Bupivacaine (Epidural) 100 Ml Bag) 0 ml EPIDURAL UD [facility]; Protocol Oxytocin/Sodium Chloride () 30 units in 500 mls @ 2 mls/hr IV .Q250H [facility] Last Infusion: 08/02/20 15:09 Dose: 10 mls/hr Documented by: Lactated Ringer's () 500 mls @ 999 mls/hr IV .Q31M PRN PRN Reason: Epidural Last Infusion: 08/02/20 13:40 Dose: Infused Documented by: Lactated Ringer's () 500 mls @ 999 mls/hr IV .Q31M PRN PRN Reason: Corrective Measures Lactated Ringer's () 1,000 mls @ 50 mls/hr IV .Q20H [facility] Last Infusion: 08/02/20 13:40 Dose: 200 mls/hr Documented by: Nalbuphine HCl (Nalbuphine 10 Mg/Ml Ampul) 5 mg IV Q3H PRN PRN PRN Reason: ITCHING Naloxone HCl (Naloxone 0.4 Mg/Ml Syringe) 0.02 mg IV Q1M PRN PRN Reason: RR <10 and pt unresponsive Ondansetron HCl (Ondansetron 4 Mg/2 Ml Vial) 4 mg IV Q4H PRN PRN PRN Reason: NAUSEA Prochlorperazine Edisylate (Prochlorperazine 10 Mg/2 Ml Vial) 10 mg IV Q6H PRN PRN PRN Reason: NAUSEA Sodium Chloride (0.9% Saline Lock 10 Ml Syringe) 10 - 40 ml IV X1 PRN PRN Reason: SALINE FLUSH Medical Necessity - Tobacco Use Smoking Status: Never smoker Assessment/Plan All Active Problems 38 weeks gestation of (Acute) Preeclampsia (Acute) 37 weeks gestation of (Acute) Polyhydramnios affecting (Acute) Hypothyroid (Acute) at 37.1 weeks gestation for induction of labor Category 2 tracing with variables- overall reassuring with moderate variability and reaction to scalp stimulation Start amnioinfusion- 250cc bolus followed by 100cc/hr Continue present plan of care Anesthesia at bedside to evaluate pain Pitocin at 8 mu/min- titrate Dr. Jolley updated and viewed patient strip Anticipate
[2020-08-02] MEDS: Amnioinfusion- 0.9% NS 1,000 ML IV.SOLN. 100 ML INTRA-UTER (17:16)
[2020-08-02] MEDS: Lactated Ringers 1,000 ML 10 ML IV (17:43)
[2020-08-02] MEDS: Oxytocin 30 units/NS 500 ml 30 UNITS/500 ML IV.SOLN 334 UNITS IV (18:06)
--- NOTE | 2020-08-02 18:21 | PCM.OPRPT ---
Problem List (1) 37 weeks gestation of Status: Acute (2) Chronic hypertension affecting Status: Chronic (3) Polyhydramnios affecting Status: Acute (4) Hypothyroid Status: Acute Report of Operation Date of Procedure: 08/02/20 Vaginal Delivery Maternal Presentation: Medically Indicated Induction Patient is a at 37.1 weeks gestation for induction of labor for chronic hypertension, polyhydramnios, obesity and hypothyroidism. Method of Induction: Pitocin, Amniotomy Medical Reason for Induction: Gestational Hypertension, Maternal Medical Condition: list: - polyhydramnios, obesity, hypothyroidism Rupture of Membrane time: 1300 Amniotic Fluid Description: Clear Final SOHAN: 08/22/20 Gestational age: 37 Weeks and 1 Days Date of Procedure: 08/02/20 Pre-Operative Diagnosis: Term gestation, polyhydramnios, chronic hypertension Post-Operative Diagnosis: same, live male Surgery/ Procedure Performed: Spontaneous Vaginal Delivery Type of Anesthesia: Epidural Description of Procedure: Patient feeling pressure in bottom and wanting to bear down. Delivered head with minimal effort followed by anterior and posterior shoulders and remainder of infant. Vigorous placed on maternal abdomen and was attended to by nursing staff. 3 vessel cord was clamped and cut by FOB after 3 minute delay. Infant placed immediately skin to skin with patient. IV pitocin started for active management of the third stage. Placenta delivered intact and spontaneously. After inspection, no lacerations noted to vagina. Small first degree laceration to perineum noted. Hemostasis occurred without suturing. Fundus firm 1 below U. EBL 200cc. APGARS 9/9. Patient and bonding at this time. Dr. Jolley updated on delivery. Presentation: Vertex, RUBI Placental Delivery Description: Spontaneous Placenta Disposition: [facility] Cord Vessel Description: 3 Vessels Cord Entanglement: None Estimated Blood Loss: 200 Infant A gender: Male (1 minute): 9 (5 minute): 9 Episiotomy Description: None Laceration: 1st degree Medications given after delivery: IV Pitocin Complications: None
[2020-08-02] MEDS: Ibuprofen 600 MG Tablet PO (19:53)
[2020-08-03 04:10] VITALS: BP 121/64; PULSE 68; RESP 16; TEMP 36.5
[2020-08-03] MEDS: Ibuprofen 600 MG Tablet PO ×2 (05:57→11:55)
[2020-08-03] MEDS: Levothyroxine 75 MCG Tablet PO (07:48)
[2020-08-03 07:49] VITALS: BP 125/81; PULSE 96; RESP 16; TEMP 36.3
--- NOTE | 2020-08-03 08:09 | PN.OBGYN_ITS ---
Patient Problems: Active and Suspected Problems 37 weeks gestation of (Acute) Polyhydramnios affecting (Acute) Hypothyroid (Acute) Subjective: pt seen at bedside, doing well. pt reports mild lochia. breast feeding, urinating w/o difficulty. pt would like dc home today. - Physical Exam Vitals/I&O's: Vital Signs Temp Pulse Resp BP Pulse Ox 97.4 F L 96 16 125/81 H 98 08/03/20 07:49 08/03/20 07:49 08/03/20 07:49 08/03/20 07:49 08/02/20 17:30 Oxygen Delivery Method Room Air Weight: 150.9 kg Body Mass Index (BMI) 49.1 Intake and Output for Last 24 Hours 08/01/20 08/02/20 08/03/20 23:59 23:59 23:59 Intake Total 2476.81 / 2476.81 Output Total 900 / 900 500 / 500 Balance 1576.81 / 1576.81 -500 / -500 General: Alert, Oriented x3 Abdomen: Soft, Non Tender, Non-Distended, - - fundus firm Extremities: No Calf Tenderness Laboratory Results 08/02/20 10:15: WBC 7.8, RBC 3.70 L, Hgb 9.7 L, Hct 30.4 L, MCV 82.2, MCH 26.2 L , MCHC 31.9 L, RDW Std Deviation 42.9, RDW Coeff of Adeline 14.5, Plt Count 179, MPV 11.8, Immature Gran % (Auto) 0.400, Neut % (Auto) 75.7 H, Lymph % (Auto) 16.7 L, Emery % (Auto) 6.3, Eos % (Auto) 0.5, Baso % (Auto) 0.4, Absolute Neuts (auto) 5.9, Absolute Lymphs (auto) 1.30, Nucleated RBC % 0 08/02/20 10:15: Blood Type O POSITIVE, Antibody Screen NEGATIVE Current Medications Acetaminophen (Acetaminophen 500 Mg Tablet) 1,000 mg PO Q8H PRN PRN PRN Reason: Pain Score 1-3 Bisacodyl (Bisacodyl 10 Mg Suppository) 10 mg RECTAL UD PRN PRN Reason: If no BM Dibucaine (Dibucaine 30 Gm Tube) 1 applic TOPICAL TID PRN PRN; Protocol PRN Reason: Discomfort Hydrocortisone (Hydrocortisone 2.5% Crm) 1 applic TOPICAL TID PRN PRN; Protocol PRN Reason: Discomfort Ibuprofen (Ibuprofen 600 Mg Tablet) 600 mg PO Q6H PRN PRN PRN Reason: Pain Score 1-3 Last Admin: 08/03/20 05:57 Dose: 600 mg Documented by: Levothyroxine Sodium (Levothyroxine 75 Mcg Tablet) 75 mcg PO DAILY@0600 HERMINIA Last Admin: 08/03/20 07:48 Dose: 75 mcg Documented by: Methylergonovine Maleate (Methylergonovine 0.2 Mg/Ml Ampul) 0.2 mg IM X1 PRN PRN Reason: Excess bleeding/uterine atony Ondansetron HCl (Ondansetron 4 Mg/2 Ml Vial) 4 mg IV Q4H PRN PRN PRN Reason: Nausea Senna/Docusate Sodium (Senna/Docusate Sodium 1 Tablet) 1 - 2 tablet PO DAILY PRN PRN PRN Reason: Constipation Simethicone (Simethicone 80 Mg Tablet) 80 mg PO PCHS PRN PRN Reason: Indigestion/Stomach pain Sodium Chloride (0.9% Saline Lock 10 Ml Syringe) 5 - 15 ml IV UD PRN PRN Reason: SALINE FLUSH Medical Necessity - Tobacco Use Smoking Status: Never smoker Assessment/Plan All Active Problems 38 weeks gestation of (Acute) Preeclampsia (Acute) 37 weeks gestation of (Acute) Polyhydramnios affecting (Acute) Hypothyroid (Acute) PPD#1, doing well. chronic HTN VS stable- BP wnl without medication recommend home BP checks 2-3 x daily- notify office if >140/90s s/sx of pre E reviewed dc home- follow up in office or virtual in 1 week.
--- NOTE | 2020-08-03 08:14 | DCINST_ITS ---
Discharge Diet: No Restrictions Discharge Activity: Return to Normal Activity, May not drive while taking narcotic pain medications., May Shower May resume sexual activity in: 4-6 weeks Additional Activity Instructions:: Nothing in the vagina for 4-6 weeks. You may return to work/school in 6 weeks. Call your doctor if your incision/area has: Continuous Slow Oozing, Sudden Increased Bleeding, Increased Pain/ Swelling, Increased Redness, Foul Smelling Discharge Additional Instructions: If you experience any of the following, contact your healthcare provider. * Bleeding that soaks a pad every hour for 2 hours * Fever 100.4 or higher * Unrelieved incision or abdominal pain * Swelling, redness, discharge or bleeding from your incision or episiotomy site * Your incision begins to separate * Problems urinating (including inability to urinate or burning while urinating). * Visual changes * Severe headache * Flu-like symptoms * Pain or redness in one of both of your breasts * Pain, warmth, tenderness or swelling in your legs, especially the calf area * Frequent nausea and vomiting * Symptoms of depression or anxiety If you experience any of the following, call 911 or go to the nearest Emergency Room. * Chest pain * Problems breathing * Seizure activity * Partial or complete paralysis of a body part, slurred speech, weakness or drooping of the face, or a sudden inability to walk or hold your balance Allergies/Adverse Reactions: Allergies No Known Allergies Allergy (Verified 08/17/19 19:28) Medications to take at Discharge Gummies 1 tab PO DAILY 08/17/19 Levothyroxine [Synthroid] 75 mcg PO DAILY 08/02/20 Ibuprofen [Motrin] 600 mg PO Q6H PRN PRN #30 tab 08/03/20 The following prescriptions were given: Ibuprofen [Motrin] 600 mg PO Q6H PRN PRN #30 tab PRN Reason: Pain Score 1-3 Transmission Status: Pending to [facility]/pharmacy #[id number] When: Call to make an appointment with your doctor in 1 week then 6 weeks. monitor BPs and notify office if >140/90 Primary Care Physician: Care Physician,No Primary [Primary Care Provider] - Test Results: Test results from this visit will be discussed in further detail at your follow- up appointment, if applicable.
[2020-08-03 11:30] VITALS: BP 148/80; PULSE 81; RESP 16; TEMP 36.7
[2020-08-03 16:02] VITALS: BP 129/81; PULSE 78; RESP 18; TEMP 36.5
== END 2020-08-03 18:45 | disposition home or self-care (01) | DRG 560 ==
PROVIDERS: Admitting Provider Advanced Practice Midwife; Referring Provider Advanced Practice Midwife; Visit Provider Advanced Practice Midwife
DX: O11.4 Pre-existing hypertension with pre-eclampsia, complicating childbirth (principal); Z37.0 Single live birth; O40.3XX0 Polyhydramnios, third trimester, not applicable or unspecified; Z3A.37 37 weeks gestation of pregnancy; E03.9 Hypothyroidism, unspecified; O99.284 Endocrine, nutritional and metabolic diseases complicating childbirth; E66.9 Obesity, unspecified; O99.214 Obesity complicating childbirth; O70.0 First degree perineal laceration during delivery
CPT/HCPCS: 59025; 59050; 85025; 86850; 86900; 86901; 99218; J7030; J7120; G0378; J3490